=== PATIENT | male | born 1945 | race Caucasian/White ===

== ENCOUNTER 2019-11-26 22:55 | Observation (INO) | payer MEDICARE ==
[~2019-11-26] VITALS: Ht 177.8 cm; Wt 120.1 kg
[~2019-11-26 22:55] MED LIST: ALLO100T30 PO; AMLO10TA8 PO; ASPI-496 PO; ENAL10TA9 PO; FURO-92 PO; GLIP10TA13 PO; HYDR-3653 PO; METF10002 PO; METO-99 PO; NIAC1TBM PO; ZOLP10TA PO
--- NOTE | 2019-11-26 23:08 | NUR ---
EKG IN TRIAGE
[2019-11-26] MEDS ORDERED: NITROGLYCERIN OINT 2%, 1GM TP ONE ×2 (23:26→23:30)
[2019-11-26] MEDS ORDERED: ASPIRIN 81 MG TABLET CHEW ONE (23:26)
--- NOTE | 2019-11-26 23:28 | NUR ---
THIS IS A 74 YO MALE COMING IN FOR ANGINA EPISODE AROUND 2100 AFTER MOVING [facility], PATIENT HAS BEEN EXPERIENCING INCREASED EPISODES OF ANGINA THE PAST FEW MONTHS, CHEST PAIN USUALLY RESOLVES AFTER A FEW HOURS AND AFTER TAKING ASA, PER PATIENT. STATES "I HAVE NITRO AT HOME BUT I HAVEN'T USED IT IN YEARS AND I THINK IT'S ". STATES IT HAS BEEN YEARS SINCE LAST STRESS TEST. DENIES CHEST PAIN AT THIS TIME, STATES WHEN IT HAPPENED IT WAS PRESSURE/BURNING IN NECK AND JAW. ALL MONITORING IN PLACE, NSR ON AUTOMOTIVE PARTS PERSON. VSS, NADN. CALL LIGHT IN REACH
[2019-11-26] MEDS ORDERED: SODIUM CHLORIDE FLUSH 10ML SYR IVF ONE (23:30)
[2019-11-26] MEDS ORDERED: ASPIRIN 81 MG TABLET CHEW PO ONE (23:30)
--- NOTE | 2019-11-26 23:32 | NUR ---
PATIENT MEDICATED PER EMAR, PIV PLACED AND LABS DRAWN/SENT TO LAB
[2019-11-26 23:58] LABS: BASOPHILS % (AUTO) 1 % (0-1); EOSINOPHILS % (AUTO) 2 % (1-7); LYMPHOCYTES % (AUTO) 22 % (22-44); MEAN CORPUSCULAR HEMOGLOBIN 32.1 pg (27.5-34.5); MEAN CORPUSCULAR HGB CONC 32.6 g/dL (33.2-36.2); MEAN PLATELET VOLUME 10.4 fL (7.4-10.4); MONOCYTES % (AUTO) 10 % (2-9); NEUTROPHILS % (AUTO) 65 % (42-75); PLATELET COUNT 153 x10^3/uL (130-400); RED BLOOD COUNT 4.28 x10^6/uL (4.38-5.82); RED CELL DISTRIBUTION WIDTH 14.4 % (9.4-14.8)
[2019-11-27 00:04] LABS: MD NO
[2019-11-27 00:06] LABS: ALBUMIN 3.6 g/dL (3.4-5.0); ANION GAP 7 mmol/L (5-15); CHLORIDE 110 mmol/L (98-107); CREATININE 2.78 mg/dL (0.7-1.3)
[2019-11-27 00:10] LABS: TROPONIN I < 0.015 ng/mL (0.000-0.045)
--- NOTE | 2019-11-27 00:38 | NUR ---
ADMITTING MD IN ROOM
[2019-11-27] MEDS ORDERED: morphine SULFATE 10 MG/ML, 1ML IVPush PRN (01:00)
[2019-11-27] MEDS ORDERED: NITROGLYCERIN 0.4 MG BOTTLE (25 TABS) SL PRN (01:00)
[2019-11-27] MEDS ORDERED: MELATONIN 5 MG TABLET PO PRN (01:00)
[2019-11-27] MEDS ORDERED: LIDODERM 5% PATCH TD PRN (01:00)
--- NOTE | 2019-11-27 01:00 | NUR ---
PATIENT MOVED TO ROOM 22, PLACED ON HOSPITAL BED
--- NOTE | 2019-11-27 02:33 | NUR ---
report given to jr covarrubias. plan of care discussed
[2019-11-27] MEDS ORDERED: HEPARIN 5,000 UNITS/ML, 1ML ONE ×2 (02:41→11:08)
[2019-11-27] MEDS: HEPARIN 5,000 UNITS/ML, 1ML SQ SCH ×2 (02:47→11:17)
--- NOTE | 2019-11-27 03:00 | NUR ---
PATIENT RESTING IN BED, NO ACUTE DISTRESS. VSS.
--- NOTE | 2019-11-27 04:00 | NUR ---
PATIENT RESTING IN BED, NO ACUTE DISTRESS, VSS.
--- NOTE | 2019-11-27 04:59 | NUR ---
PATIENT RESTING IN BED, NO ACUTE DISTRESS, VSS.
[2019-11-27 06:18] LABS: TROPONIN I < 0.015 ng/mL (0.000-0.045)
--- NOTE | 2019-11-27 06:55 | NUR ---
REPORT RECEIVED FROM PASCUAL ROSE
[2019-11-27] MEDS: INSULIN LISPRO 100 UNITS/ML, PEN SQ-INSULIN SCH ×2 (07:00→11:00)
--- NOTE | 2019-11-27 07:58 | NUR ---
PT RESTING COMFORTABLY IN BED. PT DENIES PAIN AT THIS TIME.
[2019-11-27] MEDS ORDERED: REGADENOSON 0.4 MG/5 ML SYRINGE ONE (08:45)
--- NOTE | 2019-11-27 09:02 | NUR ---
PT OFF FLOOR TO [facility].
--- NOTE | 2019-11-27 10:40 | NUR ---
PT BACK FROM [facility]. PT DENIES CHEST PAIN AT THIS TIME. AWAITING ORDERS REGARDING ADMISSION.
[2019-11-27 10:45] VITALS: BP 108/59
--- NOTE | 2019-11-27 11:25 | NUR ---
PHONE REPORT GIVEN TO PASCUAL MARTINEZ [phone]
[2019-11-27 13:06] LABS: TROPONIN I < 0.015 ng/mL (0.000-0.045)
[2019-11-27] MEDS ORDERED: RANO500T2 PO (14:10)
[2019-11-27] MEDS ORDERED: LOSA50TA14 PO (14:11)
[2019-11-27 15:00] VITALS: BP 118/70
[2019-11-27] MEDS ORDERED: ENALAPRIL 10 MG TABLET PO SCH (21:00)
[2019-11-28] MEDS ORDERED: AMLODIPINE 10 MG TAB PO SCH (09:00)
[2019-11-28] MEDS ORDERED: METOPROLOL TARTRATE 100 MG TAB PO SCH (09:00)
[2019-11-28] MEDS ORDERED: ASPIRIN 81 MG TABLET EC PO SCH (09:00)
== END 2019-11-27 16:53 | disposition home or self-care (01) ==
LOC: ED 23:25 → EDIP 11-27 01:11 → 5SO 11-27 11:48 → DCLOUNGE 11-27 16:43
PROVIDERS: ADMIT Family Medicine; ATTEND Hospitalist
DX: R07.89 Other chest pain (principal); I13.10 Hypertensive heart and chronic kidney disease without heart failure, with stage 1 through stage 4 chronic kidney disease, or unspecified chronic kidney disease; E11.22 Type 2 diabetes mellitus with diabetic chronic kidney disease; N17.9 Acute kidney failure, unspecified; N18.30 Chronic kidney disease, stage 3 unspecified; I25.110 Atherosclerotic heart disease of native coronary artery with unstable angina pectoris; K21.9 Gastro-esophageal reflux disease without esophagitis; E66.01 Morbid (severe) obesity due to excess calories; E78.5 Hyperlipidemia, unspecified; I25.2 Old myocardial infarction; Z79.82 Long term (current) use of aspirin; Z95.1 Presence of aortocoronary bypass graft; Z79.899 Other long term (current) drug therapy
CPT/HCPCS: 36415; 71045; 78452; 80048; 82040; 84484; 85025; 93005; 93017; 96372; 99285; A9502; C8929; C9898; G0378; J1644; J1815; J2785; Q9957